=== PATIENT | female | born 2005 | race Caucasian/White ===

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

== ENCOUNTER → 2023-10-03 | Outpatient (CLI) | payer OTHER ==
[2023-10-03 15:18] LABS: HEMATOCRIT 42.5 % (36.0-47.0); HEMOGLOBIN 14.1 g/dl (12.0-15.5); MEAN CORPUSCULAR HEMOGLOBIN 29.9 pg (27.0-33.0); MEAN CORPUSCULAR HGB CONC 33.2 g/dl (32.0-36.5); PLATELET COUNT, AUTOMATED 270 10^3/uL (150-450); RED BLOOD COUNT 4.72 10^6/uL (4.00-5.40); WHITE BLOOD COUNT 3.8 10^3/uL (4.0-10.0)
[2023-10-03 15:40] LABS: ALBUMIN 4.8 G/DL (3.2-5.2); ALKALINE PHOSPHATASE 63 U/L (46-116); ALT/SGPT 19 U/L (7.0-40); AST/SGOT < 8 U/L (<34); BILIRUBIN,TOTAL 0.6 MG/DL (0.3-1.2); BLOOD UREA NITROGEN 9 MG/DL (9-23); CALCIUM LEVEL 9.9 MG/DL (8.5-10.1); CARBON DIOXIDE LEVEL 25 MMOL/L (20-31); CHLORIDE LEVEL 108 MMOL/L (98-107); CREATININE FOR GFR 0.65 MG/DL (0.55-1.30); GLUCOSE, FASTING 92 MG/DL (60-100); POTASSIUM SERUM 4.1 MMOL/L (3.5-5.1); SODIUM LEVEL 141 MMOL/L (136-145); TOTAL PROTEIN 7.5 G/DL (5.7-8.2)
[2023-10-03 15:42] LABS: THYROID STIMULATING HORMONE 0.034 uIU/ML (0.48-4.17)
== END ==
LOC: M LAB 14:17
PROVIDERS: ATTEND Physician Assistant
DX: F41.9 Anxiety disorder, unspecified (principal); G47.00 Insomnia, unspecified

== ENCOUNTER → 2023-11-22 | Outpatient (CLI) | payer OTHER ==
[2023-11-22 18:38] LABS: FREE T4 1.03 NG/DL (0.83-1.43); THYROID STIMULATING HORMONE 5.449 uIU/ML (0.48-4.17); TOTAL T3 141.9 NG/DL (86.0-192.0)
== END ==
LOC: M WUC 15:21
PROVIDERS: ATTEND Internal Medicine Endocrinology, Diabetes & Metabolism
DX: E05.00 Thyrotoxicosis with diffuse goiter without thyrotoxic crisis or storm (principal)

== ENCOUNTER → 2024-01-20 | Outpatient (CLI) | payer OTHER ==
[2024-01-20 17:24] LABS: FREE T4 1.31 NG/DL (0.83-1.43)
[2024-01-20 17:25] LABS: THYROID STIMULATING HORMONE 1.061 uIU/ML (0.48-4.17)
== END ==
LOC: M WUC 13:40
PROVIDERS: ATTEND Nurse Practitioner Family
DX: E05.00 Thyrotoxicosis with diffuse goiter without thyrotoxic crisis or storm (principal)

== ENCOUNTER → 2024-02-11 | Outpatient (REF) | payer OTHER ==
[2024-02-11 19:03] LABS: Trichomonas vaginalis (AMP) NOT DETECTED (NEGATIVE)
[2024-02-11 19:27] LABS: GC DNA AMPLIFICATION NEGATIVE (NEGATIVE)
== END ==
LOC: M SFHCWAGY 16:56
PROVIDERS: ATTEND Nurse Practitioner Family
DX: N73.9 Female pelvic inflammatory disease, unspecified (principal)

== ENCOUNTER → 2024-04-27 | Outpatient (REF) | payer OTHER ==
[2024-04-27 18:55] LABS: Trichomonas vaginalis (AMP) NOT DETECTED (NEGATIVE)
[2024-04-27 19:19] LABS: GC DNA AMPLIFICATION NEGATIVE (NEGATIVE)
== END ==
LOC: M SFHCWAGY 16:53
PROVIDERS: ATTEND Nurse Practitioner Family
DX: Z11.3 Encounter for screening for infections with a predominantly sexual mode of transmission (principal)

== ENCOUNTER → 2024-06-08 | Outpatient (CLI) | payer OTHER ==
[2024-06-08 18:26] LABS: HEPATITIS B SURFACE ANTIGEN NEGATIVE (NEGATIVE)
[2024-06-08 18:38] LABS: HIV 1&2 SCREEN NEGATIVE (NEGATIVE)
[2024-06-08 18:47] LABS: HEPATITIS B CORE ANTIBODY IGM NEGATIVE (NEGATIVE); HEPATITIS C VIRUS ABY INDEX 0.02 INDEX (<0.8)
[2024-06-08 19:07] LABS: Trichomonas vaginalis (AMP) NOT DETECTED (NEGATIVE)
[2024-06-08 19:31] LABS: GC DNA AMPLIFICATION NEGATIVE (NEGATIVE)
== END ==
LOC: M PLALAB 15:18
PROVIDERS: ATTEND Nurse Practitioner Family
DX: Z11.3 Encounter for screening for infections with a predominantly sexual mode of transmission (principal); N73.9 Female pelvic inflammatory disease, unspecified

== ENCOUNTER → 2024-10-13 | Outpatient (REF) | payer OTHER | LOC: M PLALAB 13:20 | PROVIDERS: ATTEND Nurse Practitioner Family | DX: N89.8 Other specified noninflammatory disorders of vagina (principal) ==